=== PATIENT | female | born 1950 | race Caucasian/White ===

== ENCOUNTER 2017-06-02 09:37 | Day surgery (SDC) | payer OTHER ==
[~2017-06-02] VITALS: Ht 167.6 cm; Wt 83.0 kg
[~2017-06-02 09:37] MED LIST: ALLOPURINOL100 MG PO; APRESOLINE50 MG PO; ASPIR 8181 M1 PO; CYANOCOBALAM1000 MCG PO; FOLIC ACID1 MG PO; LEXAPRO20 MG PO; LIPITOR40 MG PO; PLAVIX75 MG PO; PROGRAF0.5 MG PO; ROCALTROL0.5 MCG PO; SYNTHROID88 MCG PO; TYLENOL EXTRA500 MG PO
[2017-06-02 10:04] LABS: HEMATOCRIT 35.6 % (36.0-46.0); HEMOGLOBIN 11.6 G/DL (11.9-15.5); MCH 33.2 PG (29.0-34.0); MCHC 32.6 G/DL (30.0-36.0); PLATELET COUNT 195 K/uL (156-360); RBC DIS.WIDTH-CV 14.5 % (11.8-14.6); RBC DIS.WIDTH-SD 54.3 % (39-53); RED BLOOD COUNT 3.49 M/uL (3.80-5.20); WHITE BLOOD COUNT 9.1 K/uL (4.1-10.2)
[2017-06-02 10:15] VITALS: BP 136/74
[2017-06-02 10:23] LABS: CHLORIDE 109 MEQ/L (99-109); POTASSIUM 4.6 MEQ/L (3.7-5.4); SODIUM 140 MEQ/L (136-147)
[2017-06-02 10:29] LABS: CREATININE 2.4 MG/DL (0.6-1.3); GFR ESTIMATE (CALCULATED) 21 mL/min/; GLUCOSE 112 mg/dL (70-99); UREA NITROGEN (BUN) 50 mg/dL (9-23)
[2017-06-02 16:30] VITALS: BP 142/66
[2017-06-02 17:20] VITALS: BP 89/50
[2017-06-02 17:26] VITALS: BP 94/55
[2017-06-02 18:27] VITALS: BP 104/52
[2017-06-02 19:02] VITALS: BP 110/60
== END 2017-06-02 19:32 | disposition home or self-care (01) ==
LOC: SDC 09:37
PROVIDERS: Surgery
PROC: 031809D Bypass Left Brachial Artery to Upper Arm Vein with Autologous Venous Tissue, Open Approach (ICD-10-PCS; principal; 2017-06-02)
PROC: 05BF0ZZ Excision of Left Cephalic Vein, Open Approach (ICD-10-PCS; principal; 2017-06-02)
DX: I12.0 Hypertensive chronic kidney disease with stage 5 chronic kidney disease or end stage renal disease (principal); E11.22 Type 2 diabetes mellitus with diabetic chronic kidney disease; N18.6 End stage renal disease; E03.9 Hypothyroidism, unspecified; Z85.3 Personal history of malignant neoplasm of breast; Z95.0 Presence of cardiac pacemaker; Z94.1 Heart transplant status; Z79.82 Long term (current) use of aspirin
CPT/HCPCS: 80048; 85027; J0131; J0690; J1170; J1644; J2250; J2720; J3010

== ENCOUNTER 2017-06-28 08:22 | Day surgery (SDC) | payer OTHER | END 2017-06-28 10:45 | disposition home or self-care (01) | LOC: CATH 08:22 | DX: T82.858A Stenosis of other vascular prosthetic devices, implants and grafts, initial encounter (principal); I12.0 Hypertensive chronic kidney disease with stage 5 chronic kidney disease or end stage renal disease; E11.22 Type 2 diabetes mellitus with diabetic chronic kidney disease; N18.6 End stage renal disease; Z99.2 Dependence on renal dialysis; Z82.49 Family history of ischemic heart disease and other diseases of the circulatory system; Z94.1 Heart transplant status; Z85.3 Personal history of malignant neoplasm of breast | CPT/HCPCS: C1725; C1769; C1894; J1644; J2250; J3010 ==